=== PATIENT | female | born 1975 | race Asian ===

== ENCOUNTER 2019-09-05 10:59 | Inpatient (IN) | payer OTHER ==
[~2019-09-05] VITALS: Ht 160 cm; Wt 83.0 kg
[~2019-09-05 10:59] MED LIST: PRENATAL VITAM1 EAC3 PO
[2019-09-20] MEDS ORDERED: IRON325 M1 PO (06:49)
[2019-09-20] MEDS ORDERED: FOLIC ACID1 MG PO (06:50)
--- NOTE | 2019-09-20 08:58 | NUR ---
09/20/19 0858 Sheets,Lianna 0818 PT ARRIVED TO PACU, PT AWAKE AND TALKING TO [facility] RN AND SOLAR BUSINESS DEVELOPER. PT DENIES PAIN AND NAUSEA. EDUCATION GIVEN ON FUNDAL CHECK AND SPINAL. RESP EVEN AND UNLABORED. VSS. 0834 BABY TO CHEST WITH [facility] RN.
--- NOTE | 2019-09-21 08:38 | OR ---
[facility] [address] [place], [place] [address] Signed DATE OF OPERATION: 09/20/2019 SURGEON: Cooper Tyson MD PREOPERATIVE DIAGNOSIS: Dichorionic diamniotic twins with previous section. POSTOPERATIVE DIAGNOSIS: Dichorionic diamniotic twins with previous section. PROCEDURE: Repeat low transverse segment section, delivery of twins. CLINICAL RESEARCH ANALYST: Dr. Herrera. ANESTHESIA: Spinal. ESTIMATED BLOOD LOSS: 500 mL. COMPLICATIONS: None. DRAINS: Lazo to bladder. FINDINGS: Baby A male, weight 8 pounds 7 ounces. Apgars 8 and 9 in vertex position. Baby B female, weight 7 pounds 3 ounces. Apgars 7 and 9. Position, transverse back up head to the right. Normal uterus, normal tubes and ovaries bilateral. DESCRIPTION OF PROCEDURE: The patient was brought into the operating room, placed in supine position. After adequate spinal anesthesia was obtained, was prepped and draped in usual sterile fashion. Lazo catheter was placed in the bladder. A Pfannenstiel skin incision was made through previous surgical scar using a scalpel. Subcutaneous tissue was dissected with scalpel and Bovie. The fascia was nicked with scalpel and extended in transverse fashion using curved scissors. The underlying abdominal musculature was bluntly and Electronically Signed By: COOPER TYSON MD 09/21/19 0838 PATIENT NAME: MARTI ELIZABETH OPERATIVE REPORT DATE OF : 75 REPORT #: [id number] PHYSICIAN: COOPER TYSON MD PCP: MILLICENT RAMIREZ MD REPORT IS CONFIDENTIAL AND NOT TO BE RELEASED WITHOUT AUTHORIZATION [facility] [address] [place], [place] [address] Signed sharply from the fascia above and below the incision. The abdominal musculature was bluntly and sharply along the midline. The peritoneum was grasped with hemostats, elevated, nicked with curved scissors and extended in vertical fashion with scissors and blunt dissection. The Mickey self-retaining retractor was inserted into the incision and tightened in place. The uterus was identified and small incision made in the lower uterine segment in the midline using a scalpel, bulging bag of clear fluid came from the incision. The incision was extended in transverse fashion using finger dissection and then pickups with teeth used to open the amniotic sac. A large amount of clear fluid came from the incision. Infant boy on the left side. The head was easily delivered from the incision. The rest of the easily delivered from the incision. The cord was relatively short, so the was held near the incision while the cord was doubly clamped and cut. The infant was passed off table in good condition awaiting form carpenter. A second bulging bag of clear fluid came from the incision, this was opened with pickups with teeth and this time, an arm and leg came out of the incision, the arm was pushed back in and attempt made to bring the 2nd foot out, but could not be palpated, so the head was then identified. Attempt was made to swing the infant around to vertex presentation, but this also did not work and the arm and leg again came into the incision. The arm was pushed back in and hand reached up into the left fundus where the 2nd foot could then be identified. This foot was grasped and gently brought out of the incision. At this point, both feet were grasped and brought out of the incision and the delivered as a double footling breech extraction. Infant was delivered up to the shoulders. The arms individually delivered, and then the infant's head easily delivered from the incision. This cord was doubly clamped and cut. The passed off table in good condition to awaiting form carpenter. Cord blood was obtained in normal fashion and then, the placentas manually removed. The uterine cavity was explored with a lap pad to remove any retained membranes. An angle stitch of 0 Monocryl was placed at one in the incision and a running locking stitch of 0 Monocryl starting at the other end used to close the incision. A 2nd running stitch of 0 Monocryl was used to imbricate the 1st layer. There was small amount of bleeding just to the left of midline, this was controlled with a dnawvq-sw-shjbv stitch of 0 Monocryl suture and then again a small amount of bleeding at the right angle, which was controlled with a nrgbsi-fj-cgfkz stitch of 0 Monocryl suture. At this point, the uterus was examined, noted to have good hemostasis. The entire pelvis was irrigated, suctioned, examined and noted to have few slight superficial areas of bleeding, which were controlled with Bovie. When good hemostasis was obtained, all instruments and lap pads were removed from the incision. The Mickey retractor was removed and sheet of ACell was placed over the lower uterine segment to help with healing and then the anterior wall peritoneum used in the anterior wall of peritoneum, closed using a running stitch of 2-0 Vicryl suture. The abdominal musculature was reapproximated using interrupted stitches of 0 Vicryl suture. Abdominal wall incision was irrigated, suctioned, examined, any bleeding spots cauterized with the Bovie. When good hemostasis Electronically Signed By: COOPER TYSON MD 09/21/19 0838 PATIENT NAME: MARTI ELIZABETH OPERATIVE REPORT DATE OF : 75 REPORT #: [id number] PHYSICIAN: COOPER TYSON MD PCP: MILLICENT RAMIREZ MD REPORT IS CONFIDENTIAL AND NOT TO BE RELEASED WITHOUT AUTHORIZATION [facility] [address] [place] [id number] Signed was obtained, the powdered ACell sprinkled over the abdominal musculature to help with healing. Then, the fascia closed using two running stitch of 0 Vicryl suture meeting in the midline. The subcutaneous tissue was irrigated, suctioned, examined, any bleeding spots cauterized with the Bovie. Subcutaneous tissue was then closed using interrupted stitches of 3-0 Vicryl suture. Skin was reapproximated using skin clips. The patient tolerated the procedure well, went to recovery room in good condition. The sponge, needle, and instrument count were correct at the end of the procedure. Placenta was sent to Pathology for identification. Cooper Tyson MD MJB/MODL /[id number] Copies: ~ Electronically Signed By: COOPER TYSON MD 09/21/19 0838 PATIENT NAME: MARTI ELIZABETH OPERATIVE REPORT DATE OF : 75 REPORT #: [id number] PHYSICIAN: COOPER TYSON MD PCP: MILLICENT RAMIREZ MD REPORT IS CONFIDENTIAL AND NOT TO BE RELEASED WITHOUT AUTHORIZATION
--- NOTE | 2019-09-21 08:48 | PR ---
[facility] [address] [place] [address] Signed PP Progress Notes Datetime Report Generated by CPN: 09/21/2019 08:48 SUBJECTIVE: [id number] Pain: Within normal limits Nausea/Vomiting: Denies Vital Signs: [id number] Vital Signs: Reviewed; Within Normal Limits Notable Details: PP Hgb/Hct = 10.5/30.3 EXAM: [id number] Abdomen/Uterus: Normal Lochia: Normal Extremities: Normal Incision: Normal IMPRESSION/PLAN/PROCEDURES: [id number] Impression: Normal progression Plan: Continue present management Procedures: None Progress Notes: Doing well, without complalint, tolerating food well, but worried about getting up and moving. Lazo still in place. Will d/c Lazo, increase activity as tolerated, add Abdominal Binder as needed. May shower. Signing Physician: Claritza Tyson MD Copies: ~ *Electronically Signed* 09/21/19 0848 CLARITZA TYSON MD PATIENT NAME: MARTI ELIZABETH PROGRESS NOTE DATE OF : 75 PHYSICIAN: CLARITZA TYSON MD RPT #: [id number] REPORT IS CONFIDENTIAL AND NOT TO BE RELEASED WITHOUT AUTHORIZATION
--- NOTE | 2019-09-22 11:52 | PATH ---
[facility] [address] [place], [place] [address] Signed SPECIMEN(S): A PLACENTA, TWIN (TWO PLACENTAS IN ONE CONTAINER) SPECIMEN SOURCE: A. PLACENTA, TWIN (TWO PLACENTAS IN ONE CONTAINER) , CLINICAL HISTORY: OB history: A0. Gestational age: 38. Infant's weight: (A) 8 lb 7 oz, (B) 7 lb 3 oz. score: 8, 7. Length of umbilical cord at delivery: A > B. Rh positive (Rhogam no). Antibody screen: Yes. Maternal serologies: Rubella Yes, hepatitis screen negative, GBS positive. Specific issues of concern: Previous section. Two clamps on baby B, 1 clamp on baby A. FINAL PATHOLOGIC DIAGNOSIS: Dichorionic/diamniotic twin placental disc (1096 grams), umbilical cord and membranes: - Twin A: - Chorionic villi with appropriate maturation for gestational age. - Villous infarction comprising less than 10% of placental volume. - Three vessel umbilical cord with no pathologic abnormality. - membranes with no pathologic abnormality. - Twin B: - Chorionic villi with appropriate maturation for gestational age. - Three vessel umbilical cord with no pathologic abnormality. - membranes with no pathologic abnormality. DDF:cml:C2NR MICROSCOPIC EXAMINATION: Histologic sections of all submitted blocks are examined by light microscopy. These findings, together with the gross examination, support the pathologic diagnosis. GROSS DESCRIPTION: The specimen, labeled "Marti Browning," and designated on the requisition "twin placenta," is received in formalin and consists of a twin fused discoid placenta with the following parameters: Twin A Designation: single clamped umbilical cord. Umbilical cord: Insertion paracentric, measurement 5.6 x 1.5 cm; trivascular. Cord coiling index (per 10 cm): Cannot be grossly assessed. Lesions: Not PATIENT NAME: MARTI BROWNING PATHOLOGY DATE OF : 75 REPORT #: [id number] PHYSICIAN: IVIS PATHOLOGY PCP: MILLICENT RAMIREZ MD REPORT IS CONFIDENTIAL AND NOT TO BE RELEASED WITHOUT AUTHORIZATION [facility] [address] [place], [place] [address] Signed grossly identified. Membranes: Insertion site: Marginal, pink-and translucent with focal areas of loosely adherent blood clot. Other: Not grossly identified. Twin B Designation: double clamp umbilical cord. Umbilical cord: Insertion paramarginal, measurement 11.6 x 1.6 cm; trivascular. Cord coiling index (per 10 cm): Cannot be grossly assessed. Lesions: Area of knuckling. Membranes: Insertion site: Marginal, pink and translucent. Other: Not grossly identified. Dividing membranes: Insertion site: Centrally located on the placental disc, white opaque, intact. Other: Not grossly identified. Fused Placental disc measurement: 37.5 x 27.8 x 2.7 cm. Weight (trimmed): 1096 g Chorionic Plate: Normal radiating vascular pattern, blue-purple with minimal subchorionic fibrin. Lesions: Not grossly identified. Other: The surface is divided into two equal compartments by a dividing membrane. No superficial vascular anastomoses are grossly identified. Maternal Surface: Normal cotyledons, intact. Lesions: Not grossly identified. Cut Surface: Maroon and spongy. Lesions: Not grossly identified. Basal plate fibrin 0.1 cm in thickness. Other Findings: Not grossly identified. Cassette summary: (A1) Twin A, umbilical cord and membranes (A2) Twin A, subchorionic fibrin (A3) Twin A, placental parenchyma (A4) Twin A, placental parenchyma (A5) Twin B, umbilical cord and membranes (A6) Twin B, placental parenchyma (A7) Twin B, placental parenchyma (A8) Twin B, placental parenchyma (A9) Dividing membranes. FB (under the direct supervision of a pathologist) The Gross Description was prepared using a voice recognition system. The report was reviewed for accuracy; however, sound-alike word errors, addition and/or deletions may occur. If there is any question about this report, please contact Client Services. PERFORMING LABORATORY: The technical component was performed by [employer] [facility] Maria Simpson, PATIENT NAME: MARTI BROWNING PATHOLOGY DATE OF : 75 REPORT #: [id number] PHYSICIAN: IVIS ALVES PCP: MILLICENT RAMIREZ MD REPORT IS CONFIDENTIAL AND NOT TO BE RELEASED WITHOUT AUTHORIZATION [facility] [address] [place], [place] [address] [place] [address] (Senior Quality Assurance Engineer: Jordyn Solorzano MD; CLIA# [id number]). Professional interpretation was performed by [facility], [address] [facility] [address] [address] (IA# [id number]). Diagnostician: Julian Butler DO Pathologist Electronically Signed 09/22/2019 Copies: ~ PATIENT NAME: MARTI BROWNING PATHOLOGY DATE OF : 75 REPORT #: [id number] PHYSICIAN: IVIS ALVES PCP: MILLICENT RAMIREZ MD REPORT IS CONFIDENTIAL AND NOT TO BE RELEASED WITHOUT AUTHORIZATION
--- NOTE | 2019-09-22 13:12 | PR ---
[facility] [address] [facility] [place] [address] Signed PP Progress Notes Datetime Report Generated by CPN: 09/22/2019 13:12 SUBJECTIVE: [id number] Pain: Within normal limits Nausea/Vomiting: Denies Vital Signs: [id number] Vital Signs: Reviewed; Within Normal Limits Notable Details: PP Hgb/Hct = 10.5/30.3 EXAM: [id number] Abdomen/Uterus: Normal Lochia: Normal Extremities: Abnormal Incision: Normal Exam Comments: 2+ edema IMPRESSION/PLAN/PROCEDURES: [id number] Impression: Normal progression Plan: Discharge Procedures: None Progress Notes: Doing well, without complalint, ready to go home. Signing Physician: Claritza Lucero MD Copies: ~ *Electronically Signed* 09/22/19 1312 CLARITZA LUCERO MD PATIENT NAME: MARTI ELIZABETH PROGRESS NOTE DATE OF : 75 PHYSICIAN: CLARITZA LUCERO MD RPT #: [id number] REPORT IS CONFIDENTIAL AND NOT TO BE RELEASED WITHOUT AUTHORIZATION
== END 2019-09-22 15:10 | disposition home or self-care (01) | DRG 788 ==
LOC: FBC 09-20 05:40
PROVIDERS: ADMIT General Practice
PROC: 10D00Z1 Extraction of Products of Conception, Low, Open Approach (ICD-10-PCS; principal; 2019-09-20 06:45)
DX: O34.211 Maternal care for low transverse scar from previous cesarean delivery (principal); N85.8 Other specified noninflammatory disorders of uterus; Z3A.38 38 weeks gestation of pregnancy; O99.824 Streptococcus B carrier state complicating childbirth; O32.8XX2 Maternal care for other malpresentation of fetus, fetus 2; O30.043 Twin pregnancy, dichorionic/diamniotic, third trimester; Z37.2 Twins, both liveborn; Z91.040 Latex allergy status; Z91.048 Other nonmedicinal substance allergy status
CPT/HCPCS: 01961; 36415; 85027; A9270; J0690; J1100; J1644; J2001; J2274; J2370; J2405; J2590; J3010; J7121